=== PATIENT | female | born 1955 | race Caucasian/White ===

== ENCOUNTER → 2019-04-10 | Outpatient (CLI) | payer BC ==
--- NOTE | 2019-04-10 12:00 | Diagnostic Imaging Report ---
MRI of the left ankle without contrast. History: Ankle pain. Fall. Tendon rupture. Technique: Utilizing a high-field 1.5T magnet, the following sequences were acquired: PD FS in all 3 planes with additional axial PD. Comparison: None. Findings: Achilles tendon and plantar fascia: The Achilles tendon and plantar fascia are normal. Cartilage and bone: Negative for osteochondral lesion of the tibiotalar and subtalar joints. Negative for fracture, osteonecrosis, or stress related edema. Medial ankle: The deltoid ligament complex is intact. The medial flexor tendons are normal. There is a physiologic amount of fluid within the tendon sheath of FHL. Lateral ankle: Scarring and attenuation of the anterior talofibular and calcaneofibular ligaments with synovitis/effusion in the anterior lateral gutter. The posterior talofibular ligaments are intact. The syndesmotic ligaments are intact. 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 No subluxation is seen. No full-thickness tear is seen. Anterior ankle: The anterior extensor tendons are normal. Other findings: Negative for joint effusion. 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 No subluxation is seen. No full-thickness tear is seen. Scarring and attenuation of the anterior talofibular and calcaneofibular ligaments with synovitis/effusion in the anterior lateral gutter Signed by: Dr. Kishore Cueto M.D. on 04/10/2019 11:57 AM
== END ==
LOC: MRI 10:17
PROVIDERS: ATTEND Podiatrist Foot & Ankle Surgery
DX: M76.72 Peroneal tendinitis, left leg (principal)